=== PATIENT | male | born 1955 | race Caucasian/White ===

== ENCOUNTER 2022-02-26 11:25 | Emergency (ER) | payer OTHER ==
[2022-02-26] MEDS ORDERED: LIDOCAINE 1% W/EPI 1:100,000 10 ML VIAL ONE (11:27)
[2022-02-26] MEDS ORDERED: FENTANYL CITR 100 MCG/2 ML ONE (11:46)
--- NOTE | 2022-02-26 14:03 | ER ---
Nurse's Notes [facility] Name: Cam Christensen Jr Age: 66 yrs Sex: Male : 1955 Arrival Date: 02/26/2022 Time: 11:28 Bed 3 Private MD: Diagnosis: Other mechanical complication of surgically created arteriovenous fistula, initial encounter Presentation: 02/26 11:28 Chief complaint: EMS states: Bleeding dialysis fistula x 1 hr, pt completed dialysis aa5 and dialysis center was unable to control bleeding for 1 hr, approximately 500 cc of blood loss per EMS. Combat tourniquet in place and clamp in place per EMS, bleeding controlled. Pt was given 50 mcg Fentanyl IM by EMS ITALIAN LECTURER. Pt only c/o feeling shaky and left arm pain from tourniquet. 11:28 Coronavirus screen: At this time, the client does not indicate any symptoms associated aa5 with coronavirus-19. Ebola Screen: Patient denies travel to an Ebola-affected area in the 21 days before illness onset. Initial Sepsis Screen: Does the patient meet any 2 criteria? No. Patient's initial sepsis screen is negative. Does the patient have a suspected source of infection? No. Patient's initial sepsis screen is negative. Risk Assessment: Do you want to hurt yourself or someone else? Patient reports no desire to harm self or others. Onset of symptoms was February 26, 2022. 11:28 Acuity: INRU 2 aa5 11:28 Method Of Arrival: EMS: [facility] aa5 Historical: - Allergies: 11:28 No Known Allergies; aa5 - PMHx: 11:28 ESRD; Anemia; Diabetes mellitus; Chronic Ischemic Heart Disease; Secondary aa5 Hyperparathyroidism (renal origin); Jaundice; Protein Calorie Malnutrition; Hepatitis C in 1992, pt states "not anymore"; Screenin:52 Abuse screen: Denies threats or abuse. Nutritional screening: dx of malnutrition. aa5 Tuberculosis screening: No symptoms or risk factors identified. Fall Risk None identified. Assessment: 11:28 General: Appears uncomfortable, Behavior is calm, cooperative. Pain: Complains of pain aa5 in left arm Pain currently is 7 out of 10 on a pain scale. Pain began post tourniquet application by EMS. Neuro: Level of Consciousness is awake, alert, obeys commands, Oriented to person, place, time, situation. Cardiovascular: Heart tones S1 S2 present Rhythm is regular Dialysis shunt: in the dorsal aspect of left forearm, with palpable thrill, with auscultated bruit, bleeding controlled by combat tourniquet and by clamp to bleeding site placed ITALIAN LECTURER by EMS. Respiratory: Airway is patent Respiratory effort is even, unlabored, Respiratory pattern is regular, symmetrical. GI: Abdomen is round. : No signs and/or symptoms were reported regarding the genitourinary system. EENT: No signs and/or symptoms were reported regarding the EENT system. Derm: Skin is dry, Skin is jaundiced, Skin temperature is warm. Musculoskeletal: Range of motion: intact in all extremities. 11:35 Reassessment: PA at bedside placing sutures to left arm fistula to control bleeding, no aa5 bleeding noted after suturing, combat tourniquet removed by PA after suturing was completed. . 11:45 Reassessment: No bleeding noted, pt denies any complaints. Pt sitting up in bed. . aa5 11:50 Reassessment: Pt's called to check on pt, spoke to pt and permission to provide aa5 information to his was obtained, pt's updated about patient and pt's states "he is normally anemic and his hemoglobin was 9.1 recently which is good for him". . 12:00 Neuro: Level of Consciousness is awake, alert, obeys commands, Oriented to person, aa5 place, time, situation. Respiratory: Airway is patent Respiratory effort is even, unlabored, Respiratory pattern is regular, symmetrical. Derm: Skin is dry, No active bleeding noted. Skin is jaundiced, Skin temperature is warm. 13:00 Reassessment: Pt resting in bed, states no complaints at this time. . aa5 13:50 Reassessment: Lab has rejected blood samples several times, recollect needed, pt aa5 declines recollect at this time and requests to go home, PA was notified. . 14:10 Reassessment: No bleeding noted. . Neuro: Level of Consciousness is awake, alert, obeys aa5 commands, Oriented to person, place, time, situation. Respiratory: Airway is patent Respiratory effort is even, unlabored, Respiratory pattern is regular, symmetrical. Derm: Skin is dry, Skin is jaundiced, Skin temperature is warm. Vital Signs: 11:28 BP 131 / 75; Pulse 85; Resp 18 S; Temp 98.0(TE); Pulse Ox 96% ; Weight 102 kg (R); aa5 12:15 BP 112 / 54; Pulse 77; Resp 18 S; Pulse Ox 97% on R/A; aa5 13:00 BP 120 / 63; Pulse 78; Resp 16 S; Pulse Ox 97% on R/A; aa5 13:45 BP 117 / 53; Pulse 84; Resp 18 S; Temp 97.6(TE); Pulse Ox 97% on R/A; aa5 ED Course: 11:28 Patient arrived in ED. eb 11:28 Arm band placed on Patient placed in an exam room, on a stretcher. aa5 11:28 Patient has correct armband on for positive identification. Bed in low position. Call aa5 light in reach. Side rails up X2. Pulse ox on. NIBP on. 11:30 Britt Cleveland RN is Primary Nurse. aa5 11:38 Triage completed. aa5 11:38 Karl Man PA is PHCP. cp 11:38 Gordy Garcia MD is Attending Physician. cp 12:03 Initial lab(s) drawn, by ED staff, sent to lab. Inserted saline lock: 20 gauge in right aa5 antecubital area, using aseptic technique. Blood collected. IV inserted by Erika Barger RN. 14:05 No provider procedures requiring assistance completed. IV discontinued, intact, aa5 bleeding controlled, No redness/swelling at site. Pressure dressing applied. Administered Medications: 12:05 Drug: fentaNYL (PF) 25 mcg Route: IVP; Site: right antecubital; aa5 13:00 Follow up: Response: No adverse reaction; Pain is decreased aa5 Medication: 14:10 VIS not applicable for this client. aa5 Outcome: 14:02 Discharge ordered by . cp 14:10 Discharged to home via wheelchair, with family. aa5 14:10 Condition: stable 14:10 Discharge instructions given to patient, Instructed on discharge instructions, follow up and referral plans. Demonstrated understanding of instructions, follow-up care. 14:19 Patient left the ED. aa5 Signatures: Britt Cleveland RN RN aa5 Karl Man PA PA Kaylynn Thomas
--- NOTE | 2022-02-26 14:03 | EDPHYS ---
Physician Documentation [facility] Name: Cam Christensen Jr Age: 66 yrs Sex: Male : 1955 Arrival Date: 02/26/2022 Time: 11:28 Bed 3 Private MD: ED Physician Gordy Garcia HPI: 02/26 11:45 This 66 yrs old Male presents to ER via EMS with complaints of Bleeding dialysis cp fistula. Historical: - Allergies: 11:28 No Known Allergies; aa5 - PMHx: 11:28 ESRD; Anemia; Diabetes mellitus; Chronic Ischemic Heart Disease; Secondary aa5 Hyperparathyroidism (renal origin); Jaundice; Protein Calorie Malnutrition; Hepatitis C in 1992, pt states "not anymore"; ROS: 11:50 Constitutional: Negative for body aches, chills, fever. cp 11:50 Eyes: Negative for injury, pain, redness, and discharge. cp 11:50 Cardiovascular: Negative for chest pain, palpitations. 11:50 Respiratory: Negative for cough, shortness of breath, wheezing. 11:50 MS/extremity: Positive for of the left arm, bleeding, Negative for injury or acute deformity. 11:50 Neuro: Negative for altered mental status, headache, weakness. 11:50 All other systems are negative. Exam: 11:55 Constitutional: The patient appears in no acute distress, alert, awake, non-toxic, well cp developed, well nourished, uncomfortable. 11:55 Head/Face: Normocephalic, atraumatic. cp 11:55 Eyes: Periorbital structures: appear normal, Conjunctiva: normal, no exudate, no injection, Sclera: no appreciated abnormality, Lids and lashes: appear normal, bilaterally. 11:55 ENT: External ear(s): are unremarkable, Nose: is normal, Mouth: Lips: moist, Oral mucosa: moist, Posterior pharynx: Airway: no evidence of obstruction, patent. 11:55 Chest/axilla: Inspection: normal. 11:55 Cardiovascular: Rate: normal, Rhythm: regular. 11:55 Respiratory: the patient does not display signs of respiratory distress, Respirations: normal, no use of accessory muscles, no retractions, labored breathing, is not present, Breath sounds: are clear throughout, no decreased breath sounds, no stridor, no wheezing. 11:55 Abdomen/GI: Inspection: abdomen appears normal, Palpation: abdomen is soft and non-tender, in all quadrants. 11:55 Musculoskeletal/extremity: Extremities: grossly normal except: noted in the left arm: tourniquet in place left upper arm, no active bleeding observed. Vital Signs: 11:28 BP 131 / 75; Pulse 85; Resp 18 S; Temp 98.0(TE); Pulse Ox 96% ; Weight 102 kg (R); aa5 12:15 BP 112 / 54; Pulse 77; Resp 18 S; Pulse Ox 97% on R/A; aa5 13:00 BP 120 / 63; Pulse 78; Resp 16 S; Pulse Ox 97% on R/A; aa5 13:45 BP 117 / 53; Pulse 84; Resp 18 S; Temp 97.6(TE); Pulse Ox 97% on R/A; aa5 Procedures: 13:00 1 cross stitch placed using 4-0 prolene to left forearm. cp MDM: 11:42 Patient medically screened. cp 14:00 Data reviewed: vital signs, nurses notes. ED course: VSS. Patient refusing third blood cp recollect at this time. 14:00 Counseling: I had a detailed discussion with the patient and/or guardian regarding: the cp historical points, exam findings, and any diagnostic results supporting the discharge/admit diagnosis, the need for outpatient follow up, a family practitioner, to return to the emergency department if symptoms worsen or persist or if there are any questions or concerns that arise at home. 14:00 Response to treatment: the patient's symptoms have resolved after treatment, and as a cp result, I will discharge patient. 02/26 11:39 Order name: IV; Complete Time: 11:57 cp 02/26 12:18 Order name: Labs - recollect needed: recollect all the labs / lilliana printing labels; jl7 Complete Time: 12:49 Administered Medications: 12:05 Drug: fentaNYL (PF) 25 mcg Route: IVP; Site: right antecubital; aa5 13:00 Follow up: Response: No adverse reaction; Pain is decreased aa5 Disposition: 14:53 Co-signature as Attending Physician, Gordy Garcia MD I agree with the assessment and kdr plan of care. Disposition Summary: 02/26/22 14:02 Discharge Ordered Location: Home cp Problem: new cp Symptoms: have improved cp Condition: Stable cp Diagnosis - Other mechanical complication of surgically created arteriovenous fistula, initial cp encounter Followup: cp - With: Private Physician - When: 1 - 2 days - Reason: Recheck today's complaints Forms: - Medication Reconciliation Form cp - Thank You Letter cp - Antibiotic Education cp - Prescription Opioid Use cp Signatures: Dispatcher [employer] EDGordy Maxwell MD MD kdr Calderon, Audri RN RN aa5 Karl Man PA PA cp Leal, Jahala RN RN jl7
[2022-02-26 14:54] VITALS: BP 131/75; TEMP 98; O2SAT 96
== END 2022-02-26 14:19 | disposition home or self-care (01) ==
LOC: ER 11:25
DX: T82.590A Other mechanical complication of surgically created arteriovenous fistula, initial encounter (principal); E11.22 Type 2 diabetes mellitus with diabetic chronic kidney disease; N18.6 End stage renal disease; D64.9 Anemia, unspecified; E21.3 Hyperparathyroidism, unspecified; B19.20 Unspecified viral hepatitis C without hepatic coma; I25.9 Chronic ischemic heart disease, unspecified
CPT/HCPCS: 96374; 99284; J3010

== ENCOUNTER 2024-09-30 09:00 | Inpatient (IN) | payer OTHER ==
[2024-09-30 10:04] LABS: Albumin 2.3 g/dL (3.4-5.0); Albumin/Globulin Ratio 0.6 (1.1-1.8); Anion Gap 8.6 mEq/L (5.0-15.0); Bilirubin Direct 0.5 mg/dL (0-0.2); Bilirubin Total 2.5 mg/dL (0.2-1.0); Globulin 3.9 g/dL (2.3-3.5); Magnesium 1.7 mg/dL (1.6-2.4); Potassium 4.6 mEq/L (3.5-5.1); Protein, Total 6.2 g/dL (6.4-8.2)
--- NOTE | 2024-09-30 10:18 | ER ---
Nurse's Notes [facility] Name: Cam Christensen Jr Age: 69 yrs Sex: Male : 1955 Arrival Date: 09/30/2024 Time: 09:00 Bed 4 Private MD: Diagnosis: Acute combined systolic and diastolic heart failure Presentation: 09/30 09:02 Chief complaint: EMS states: SOB SINCE Y/D. Coronavirus screen: At this time, the bp client does not indicate any symptoms associated with coronavirus-19. Ebola Screen: No symptoms or risks identified at this time. Initial Sepsis Screen: Does the patient meet any 2 criteria? No. Patient's initial sepsis screen is negative. Does the patient have a suspected source of infection? No. Patient's initial sepsis screen is negative. Risk Assessment: Do you want to hurt yourself or someone else? Patient reports no desire to harm self or others. Onset of symptoms is unknown. Care prior to arrival: Glucose check: 136. 09:02 Method Of Arrival: EMS: [facility] bp 09:02 Acuity: NIRU 3 bp 09:02 Note HD 2M. bp Triage Assessment: 09:04 General: Appears in no apparent distress. Behavior is calm, cooperative, appropriate bp for age. Pain: Complains of pain in chest. EENT: No deficits noted. Neuro: No deficits noted. Cardiovascular: Rhythm is sinus rhythm. Respiratory: Breath sounds are clear bilaterally. GI: No signs and/or symptoms were reported involving the gastrointestinal system. : No signs and/or symptoms were reported regarding the genitourinary system. Derm: No signs and/or symptoms reported regarding the dermatologic system. Musculoskeletal: No deficits noted. Historical: - Allergies: 09:04 No Known Allergies; bp - PMHx: 09:04 Anemia; Chronic ischemic heart disease; diabetes mellitus; ESRD; JAUNDICE; Protein bp Calorie Malnutrition; Secondary Hyperparathyroidism (renal origin); HEPATITIS C (Secondary Hyperparathyroidism (renal origin)); - Immunization history:: Adult Immunizations up to date. - Infectious Disease History:: Denies. - Social history:: Smoking status: unknown. Screenin:34 [facility] ED Fall Risk Assessment (Adult) History of falling in the last 3 months, bp including since admission No falls in past 3 months (0 pts) Confusion or Disorientation No (0 pts) Intoxicated or Sedated No (0 pts) Impaired Gait No (0 pts) Mobility Assist Device Used No (0 pt) Altered Elimination No (0 pt) Score/Fall Risk Level 0 - 2 = Low Risk Oriented to surroundings. Abuse screen: Denies threats or abuse. Denies injuries from another. Nutritional screening: No deficits noted. Tuberculosis screening: No symptoms or risk factors identified. Assessment: 09:05 General: Appears in no apparent distress. Behavior is cooperative, appropriate for age, bp anxious. 11:00 Reassessment: No changes from previously documented assessment. bp 13:00 Reassessment: No changes from previously documented assessment. Patient is alert, bp oriented x 3, equal unlabored respirations, skin warm/dry/pink. 17:51 Reassessment: PT JUAN TO DIALYSIS. bp Vital Signs: 09:02 BP 123 / 60; Pulse 70; Resp 18; Temp 98.6; Pulse Ox 100% on 2 lpm NC; Weight 102 kg; bp Height 6 ft. 1 in. ; 11:00 BP 135 / 67; Pulse 91; Resp 20; Pulse Ox 99% ; bp 13:00 BP 141 / 71; Pulse 87; Resp 20; Pulse Ox 100% ; bp 09:02 Body Mass Index 29.67 (102.00 kg, 185.42 cm) bp ED Course: 09:01 Patient arrived in ED. bd 09:02 Madhu Madden, RN is Primary Nurse. bp 09:02 Lashawn Lizarraga MD is Attending Physician. gb1 09:03 Triage completed. bp 09:06 Arm band placed on. bp 09:36 Troponin HS Sent. zm 09:36 PT-INR Sent. zm 09:36 NT PRO-BNP Sent. zm 09:36 Magnesium Sent. zm 09:36 LFT's Sent. zm 09:36 CBC with Diff Sent. zm 09:36 Basic Metabolic Panel Sent. zm 09:36 Inserted saline lock: 20 gauge in right antecubital area, using aseptic technique. zm Blood collected. Flushed with 10 mL NS. 09:42 XRAY Chest (1 view) In Process Unspecified. EDMS 10:16 Rick Fernandes is Hospitalizing Provider. gb1 10:35 Hospitalizing Provider role handed off by Rick Fernandes gb1 10:35 Enedina Sheffield MD is Hospitalizing Provider. gb1 10:59 Inserted saline lock: 24 gauge in right hand, using aseptic technique. Blood collected. bp 13:34 Patient has correct armband on for positive identification. bp 13:34 No provider procedures requiring assistance completed. Patient admitted, IV remains in bp place. Administered Medications: No medications were administered Medication: 13:35 VIS not applicable for this client. bp Outcome: 10:18 Decision to Hospitalize by Provider. gb1 13:35 Admitted to ER Hold. Please see [facility] for further documentation. bp 13:35 Condition: stable 13:35 Instructed on the need for admit, 17:51 Patient left the ED. bp Signatures: Dispatcher [employer] EDMS Christine Jarvis Brian, RN RN Michelle Ram Gina, MD MD gb1 Corrections: (The following items were deleted from the chart) 09:05 09:04 PMHx: Hepatitis C in 1992, pt states "not anymore"; bp bp 13:41 09:02 BP 123 / 60; Pulse 70bpm; Resp 18bpm; Pulse Ox 100% 2 lpm Nasal Cannula; Temp bp 98.6F; bp
--- NOTE | 2024-09-30 10:18 | EDPHYS ---
Physician Documentation [facility] Name: Cam Christensen Jr Age: 69 yrs Sex: Male : 1955 Arrival Date: 09/30/2024 Time: 09:00 Bed 4 Private MD: ED Physician Lashawn Lizarraga HPI: 09/30 10:11 This 69 yrs old Male presents to ER via EMS with complaints of sob. gb1 10:11 69-year-old Mr. Cam Christensen came for shortness of breath. He is at dialysis gb1 patient ESRD who dialyzes Monday and Monday. He did go and have dialysis on Monday. He is a heavy smoker with a history of chronic ischemic heart disease, diabetes, anemia, cirrhosis. Patient denies any chest pain or fever he denies any cough.. Historical: - Allergies: 09:04 No Known Allergies; bp - PMHx: 09:04 Anemia; Chronic ischemic heart disease; diabetes mellitus; ESRD; JAUNDICE; Protein bp Calorie Malnutrition; Secondary Hyperparathyroidism (renal origin); HEPATITIS C (Secondary Hyperparathyroidism (renal origin)); - Immunization history:: Adult Immunizations up to date. - Infectious Disease History:: Denies. - Social history:: Smoking status: unknown. Exam: 10:11 Constitutional: This is a well developed, well nourished patient who is awake, alert, gb1 he appears tired, pale and slightly jaundiced. 10:11 Head/Face: Normocephalic, atraumatic. Eyes: Pupils equal round and reactive to light, gb1 extra-ocular motions intact. Lids and lashes normal. Conjunctiva and sclera are non-icteric and not injected. Cornea within normal limits. Periorbital areas with no swelling, redness, or edema. ENT: Nares patent. No nasal discharge, no septal abnormalities noted. Tympanic membranes are normal and external auditory canals are clear. Oropharynx with no redness, swelling, or masses, exudates, or evidence of obstruction, uvula midline. Mucous membranes moist. Neck: Trachea midline, no thyromegaly or masses palpated, and no cervical lymphadenopathy. Supple, full range of motion without nuchal rigidity, or vertebral point tenderness. No Meningismus. Chest/axilla: Normal chest wall appearance and motion. Nontender with no deformity. No lesions are appreciated. Cardiovascular: Regular rate and rhythm with a normal S1 and S2. No gallops, murmurs, or rubs. Normal PMI, no JVD. No pulse deficits. Respiratory: Clear to auscultation on the left. No rales, rhonchi or wheezes noted. Mild increased work of breathing, mild retractions, no nasal flaring. Abdomen/GI: Soft, non-tender, with normal bowel sounds. No distension or tympany. No guarding or rebound. No evidence of tenderness throughout. Back: No spinal tenderness. No costovertebral tenderness. Full range of motion. Skin: Warm, dry with normal turgor. Normal color with no rashes, no lesions, and no evidence of cellulitis. MS/ Extremity: Pulses equal, no cyanosis. Neurovascular intact. Full, normal range of motion. Vital Signs: 09:02 BP 123 / 60; Pulse 70; Resp 18; Temp 98.6; Pulse Ox 100% on 2 lpm NC; Weight 102 kg; bp Height 6 ft. 1 in. ; 11:00 BP 135 / 67; Pulse 91; Resp 20; Pulse Ox 99% ; bp 13:00 BP 141 / 71; Pulse 87; Resp 20; Pulse Ox 100% ; bp 09:02 Body Mass Index 29.67 (102.00 kg, 185.42 cm) bp MDM: 09:02 Medical Screening Exam initiated gb 10:11 Data reviewed: vital signs, nurses notes. ED course: 69-year-old male with history of gb1 ESRD on hemodialysis Monday and Monday is here with decompensated heart failure and right-sided pulmonary edema with effusion-. Patient is requiring emergent hemodialysis by Dr. Castillo. Will admit to hospitalit. Likely decompensated heart failure. 09/30 09:05 Order name: Basic Metabolic Panel; Complete Time: 10:18 09/30 09:05 Order name: CBC with Diff; Complete Time: 14:20 09/30 09:05 Order name: LFT's; Complete Time: 10:18 09/30 09:05 Order name: Magnesium; Complete Time: 10:18 09/30 09:05 Order name: NT PRO-BNP; Complete Time: 10:18 09/30 09:05 Order name: PT-INR; Complete Time: 12:28 [facility] 09/30 09:05 Order name: Troponin HS; Complete Time: 10:18 [facility] 09/30 11:45 Order name: CBC Smear Scan; Complete Time: 14:20 [facility] 09/30 09:05 Order name: XRAY Chest (1 view); Complete Time: 10:30 [facility] 09/30 11:31 Order name: CONS Physician Consult EDNY 09/30 09:05 Order name: Cardiac monitoring; Complete Time: 09:35 [facility] 09/30 09:05 Order name: EKG - Nurse/Tech; Complete Time: 09:35 [facility] 09/30 09:05 Order name: IV Saline Lock; Complete Time: 09:35 [facility] 09/30 09:05 Order name: Labs collected and sent; Complete Time: 09:35 [facility] 09/30 09:05 Order name: O2 Per Protocol; Complete Time: 09:09 [facility] 09/30 09:05 Order name: O2 Sat Monitoring; Complete Time: 09:09 [facility] 09/30 10:10 Order name: Labs - recollect needed: recollect blue and lavender; Complete Time: 11:00 bd Administered Medications: No medications were administered Disposition Summary: 09/30/24 10:18 Hospitalization Ordered Notes: Hospitalization Status: Inpatient Admission gb1 Condition: Fair gb1 Problem: new gb1 Symptoms: have worsened gb1 Bed/Room Type: Standard gb1 Provider: Enedina Sheffield(09/30/24 10:37) gb1 Location: Telemetry/MedSurg (Inpatient)(09/30/24 17:38) kb3 Room Assignment: [facility](09/30/24 17:38) kb3 Diagnosis - Acute combined systolic and diastolic heart failure gb1 Forms: - Medication Reconciliation Form gb1 - SBAR form gb1 - Leadership Thank You Letter gb1 Signatures: Dispatcher [employer] EDMS Christine Jarvis Josh, PA PA [id number] Madhu Madden RN RN bp Vania Burt, RN RN kb3 Lashawn Lizarraga MD MD gb1 Corrections: (The following items were deleted from the chart) 09:05 09:04 PMHx: Hepatitis C in 1992, pt states "not anymore"; bp bp 09:06 09:06 BASIC METABOLIC PANEL+C.LAB.BRZ ordered. EDMS EDMS 09:06 09:06 CBC+H.LAB.BRZ ordered. EDMS EDMS 09:06 09:06 HEPATIC FUNCTION+C.LAB.BRZ ordered. EDMS EDMS 09:06 09:06 MAGNESIUM+C.LAB.BRZ ordered. EDMS EDMS 09:06 09:06 PROBNP+C.LAB.BRZ ordered. EDMS EDMS 09:06 09:06 PROTIME (+INR)+COAG.LAB.BRZ ordered. EDMS EDMS 09:06 09:06 Troponin High Sensitivity+C.LAB.BRZ ordered. EDMS EDMS 09:06 09:06 Chest Single View+RAD.RAD.BRZ ordered. EDMS EDMS 10:37 10:18 Rick Fernandes gb1 gb1 12:13 10:18 Telemetry/MedSurg (Inpatient) gb1 kb3 12:13 10:18 gb1 kb3 17:38 12:13 BR ER HOLD kb3 kb3 17:38 12:13 ERHOLD- kb3 kb3
--- NOTE | 2024-09-30 10:29 | RAD REPORT ---
EXAMINATION: ONE VIEW CHEST XR CLINICAL INDICATION: Male, 69 years old.,CHEST PAIN TECHNIQUE: Frontal chest projection is submitted. Examination is limited by patient positioning and t echnique. COMPARISON: No prior exam. FINDINGS: The lungs are somewhat suboptimally inflated. Noninclusion of the tip of the right costophrenic angle limits evaluation. Central interstitial prominence and perihilar and basilar hazy opacities. Right moderate pleural effusion with component accumulating near the right apex. The heart is normal in size. Mediastinal contours are unremarkable. IMPRESSION: Findings that may suggest pulmonary edema. Concomitant or superimposed pneumonia should be considered . Moderate right pleural effusion.
[2024-09-30 11:39] LABS: Absolute Eosinophils 0.1 K/uL (0-0.5); Absolute Lymphocytes (CBC) 0.7 K/uL (0.7-4.9); Absolute Monocytes 0.4 K/uL (0.1-1.3); Absolute Neutrophil 2.1 K/uL (1.8-8.0); Basophils % 1.2 % (0-1.3); Eosinophils % 3.1 % (0-4.4); Hematocrit 29.2 % (39.6-49.0); Hemoglobin 10.2 g/dL (13.6-17.9); Lymphocytes % 19.9 % (15.3-44.8); MCH 34.3 pg (27.0-35.0); MCHC 34.9 g/dL (32.0-36.0); MCV 98.4 fL (80-100); MPV 7.5 fL (7.6-11.3); Monocytes % 11.4 % (3.3-12.3); Neutrophils % 64.4 % (41.7-73.7); Nucleated Red Blood Cells % 0.4 % (0-0); Platelets 32 thou/uL (152-406); RBC Red Blood Cell Count 2.96 M/uL (4.33-5.43); Red Cell Distribution Width 16.4 % (12.1-15.2)
[2024-09-30 11:59] LABS: PT Prothrombin Time 14.6 SECONDS (10-13.0); Protime INR 1.3
--- NOTE | 2024-09-30 12:31 | P.HP ---
Certification for Inpatient Patient admitted to: Inpatient With expected LOS: >2 Midnights Patient will require the following post-hospital care: None Practitioner: I am a practitioner with admitting privileges, knowledge of patient current condition, hospital course, and medical plan of care. Services: Services provided to patient in accordance with Admission requirements found in Title 42 Section 412.3 of the Code of Federal Regulations <Naresh Mitchell - Last Filed: 09/30/24 12:25> Patient History Date of Service: 09/30/24 Reason for admission: ESRD, CHF History of Present Illness: This is a 69-year-old male patient who presents to the emergency room via EMS for increased shortness of breath over the past 24 hours. Patient stated that he has a history of end-stage renal disease and is on hemodialysis along with chronic liver disease and cardiovascular disease. Normally he has a Monday, , Monday dialysis patient. Dialyzed this past Monday without complication but still had increased edema per patient. Patient stated that over the last couple days had marked swelling with increased shortness of breath despite dialysis. EMS called today because of the shortness of breath. Patient was evaluated in the emergency room and found to have a sodium of 142, potassium of 4.6, chloride of 111, bicarb 27, BUN of 29, creatinine of 2.92, glucose of 107. Patient's BNP was 28,673. Patient has a white blood cell count of 3.3, hemoglobin of 10.2, hematocrit 29.2, platelet 32. Chest x-ray shows pulmonary edema with pleural effusion and possible underlying pneumonia. No fevers present and no increase in white cell count. Patient on 2 L nasal cannula emergency room with 100% oxygen saturation at this time. Normally sees the [facility] for primary care. Emergency room consulted Dr. Alvarez with nephrology team who wanted him hemodialyzed urgently today. Home medications list reviewed: No (Unable to obtain all medications) - Social History Smoking Status: Never smoker Smoking therapy provided: No Alcohol use: No CD- Drugs: No Place of Residence: Home <Naresh Mitchell - Last Filed: 09/30/24 12:25> Date of Service: 09/30/24 <Enedina Sheffield - Last Filed: 09/30/24 16:46> Review of Systems General: As per HPI Eyes: Unremarkable ENT: Unremarkable Respiratory: Shortness of Breath Cardiovascular: Edema Gastrointestinal: Unremarkable Musculoskeletal: Unremarkable Integumentary: Unremarkable Neurological: Unremarkable Lymphatics: Unremarkable <Naresh Mitchell - Last Filed: 09/30/24 12:25> Physical Examination - Vital Signs Temperature: 98.6 F Blood Pressure: 123/60 Pulse: 70 Respirations: 18 Pulse Ox (%): 100 (2 L nasal cannula) - Physical Exam General: Alert, Oriented x3, Cooperative HEENT: Normocephalic, PERRLA Neck: Supple, JVD not distended Respiratory: Crackles/rales Cardiovascular: Regular rate/rhythm, Normal S1 S2, No gallops, No rubs, No murmurs, Edema (2+ bilateral lower extremities and upper extremities) Capillary refill: <2 Seconds Gastrointestinal: Normal bowel sounds, Soft and benign, Non-distended Musculoskeletal: No clubbing, No swelling, No contractures, No erythema, No tenderness, No warmth Integumentary: Other (Sporadic bruising to the upper and lower extremities along with the chest and abdomen) Neurological: Normal speech, Normal strength at 5/5 x4 extr, Normal tone, Sensation intact - Studies Laboratory Data (last 24 hrs) 09/30/24 09/30/24 09/30/24 11:03 11:03 09:33 WBC 3.30 L Hgb 10.2 L Hct 29.2 L Plt Count 32 L PT 14.6 H INR 1.30 Sodium 142 Potassium 4.6 BUN 29 H Creatinine 2.92 H Glucose 107 H Magnesium 1.7 Total Bilirubin 2.5 H AST 19 ALT 16 Alkaline Phosphatase 88 <Naresh Mitchell - Last Filed: 09/30/24 12:25> - Studies Laboratory Data (last 24 hrs) 09/30/24 09/30/24 09/30/24 11:03 11:03 09:33 WBC 3.30 L Hgb 10.2 L Hct 29.2 L Plt Count 32 L PT 14.6 H INR 1.30 Sodium 142 Potassium 4.6 BUN 29 H Creatinine 2.92 H Glucose 107 H Magnesium 1.7 Total Bilirubin 2.5 H AST 19 ALT 16 Alkaline Phosphatase 88 <Enedina Sheffield - Last Filed: 09/30/24 16:46> Assessment and Plan - Problems (Diagnosis) (1) Chronic liver disease Current Visit: No Status: Chronic (2) CHF (congestive heart failure) Current Visit: Yes Status: Acute Qualifiers: Heart failure type: unspecified Heart failure chronicity: acute Qualified Code(s): I50.9 - Heart failure, unspecified (3) ESRD (end stage renal disease) on dialysis Current Visit: Yes Status: Chronic - Plan 1. Chronic liver disease Will continue to monitor liver function, patient was treated for hepatitis C successfully but has residual damage 2. ESRD with dialysis Patient needs urgent hemodialysis secondary to fluid overload. Dr. Alvarez has been consulted and will manage kidney function and dialysis treatments 3. Congestive heart failure Presumed new onset congestive heart failure based on patient's history and examination. Echocardiogram will be ordered to further assess whether this is cardiac in nature versus renal in nature. Patient will have hemodialysis to help with fluid overload status and will maintain on oxygen therapy. 4. DVT prophylaxis Patient will be given heparin twice daily 5000 units for DVT prophylaxis We will continue to monitor patient in telemetry unit and will get every morning labs including CBC, BMP, BNP Discharge Plan: Home Plan to discharge in: Greater than 2 days - Advance Directives Does patient have a Living Will: No Does patient have a Durable POA for Healthcare: No - Code Status/Comfort Care Code Status Assessed: Yes Code Status: Full Code Critical Care: No Time Spent Managing Pts Care (In Minutes): 45 <Naresh Mitchell - Last Filed: 09/30/24 12:25> Physician Review: Patient Assessed, Agree with Above Assessment and Plan <Enedina Sheffield - Last Filed: 09/30/24 16:46>
[2024-09-30] MEDS ORDERED: ACETAMINOPHEN 500 MG TAB PO PRN (13:16)
[2024-09-30] MEDS ORDERED: ONDANSETRON 4 MG/2 ML VIAL IV PRN (13:16)
[2024-09-30 13:54] VITALS: BMI 29.6
[2024-09-30 14:11] LABS: Blood Morphology Comment NOTED (NOT SEEN); Platelet Estimate DECR; White Blood Cell Scan OK (OK)
[2024-09-30 14:12] LABS: Spherocyte 1+; Teardrop Cell FEW
[2024-09-30] MEDS: HEPARIN 5000 UNIT/ML 1 ML VIAL SQ SCH (21:44)
--- NOTE | 2024-09-30 22:04 | P.CNS ---
Date of Consult: 09/30/24 Reason for Consult: ESRD Requesting Physician: Enedina Sheffield Chief Complaint: ESRD, CHF History of Present Illness: This is a 69-year-old male patient who presents to the emergency room via EMS for increased shortness of breath over the past 24 hours. Patient stated that he has a history of end-stage renal disease and is on hemodialysis along with chronic liver disease and cardiovascular disease. Normally he has a Monday, , Monday dialysis patient. Dialyzed this past Monday without complication but still had increased edema per patient. Patient stated that over the last couple days had marked swelling with increased shortness of breath despite dialysis. EMS called today because of the shortness of breath. Patient was evaluated in the emergency room and found to have a sodium of 142, potassium of 4.6, chloride of 111, bicarb 27, BUN of 29, creatinine of 2.92, glucose of 107. Patient's BNP was 28,673. Patient has a white blood cell count of 3.3, hemoglobin of 10.2, hematocrit 29.2, platelet 32. Chest x-ray shows pulmonary edema with pleural effusion and possible underlying pneumonia. No fevers present and no increase in white cell count. Patient on 2 L nasal cannula emergency room with 100% oxygen saturation at this time. [facility] Emergency room consulted Dr. Alvarez with nephrology team who wanted him hemodialyzed urgently today. [id number] 10:11 This 69 yrs old Male presents to ER via EMS with complaints of sob. [id number] 10:11 69-year-old Mr. Cam Christensen came for shortness of breath. He is at dialysis gb1 patient ESRD who dialyzes Monday and Monday. He did go and have dialysis on Monday. He is a heavy smoker with a history of chronic ischemic heart disease, diabetes, anemia, cirrhosis. Patient denies any chest pain or fever he denies any cough.. Allergies No Known Allergies Allergy (Verified 09/30/24 21:52) Home medications list reviewed: Yes - Past Medical/Surgical History Diabetic: Yes -: ESRD (Dr. Alvarez/ [facility]) -: DM II -: CHF -: HTN -: HCV - Social History Smoking Status: Unknown if ever smoked Alcohol use: No CD- Drugs: No Place of Residence: Home Review of Systems 10-point ROS is otherwise unremarkable General: Weakness, Malaise Respiratory: SOB with Excertion Physical Examination Temp Pulse Resp BP Pulse Ox 98.6 F 80 20 131/67 100 09/30/24 12:40 09/30/24 16:00 09/30/24 16:00 09/30/24 16:00 09/30/24 16:00 General: Oriented x3, Cooperative HEENT: Atraumatic Neck: Supple Respiratory: Diminished Cardiovascular: Regular rate/rhythm, Edema Gastrointestinal: Soft and benign, Non-distended Musculoskeletal: No clubbing, No contractures Integumentary: No rashes, No cyanosis Neurological: Normal speech Laboratory Data (last 24 hrs) 09/30/24 09/30/24 09/30/24 11:03 11:03 09:33 WBC 3.30 L Hgb 10.2 L Hct 29.2 L Plt Count 32 L PT 14.6 H INR 1.30 Sodium 142 Potassium 4.6 BUN 29 H Creatinine 2.92 H Glucose 107 H Magnesium 1.7 Total Bilirubin 2.5 H AST 19 ALT 16 Alkaline Phosphatase 88 Imagings Data: EXAMINATION: ONE VIEW CHEST XR CLINICAL INDICATION: Male, 69 years old.,CHEST PAIN TECHNIQUE: Frontal chest projection is submitted. Examination is limited by patient positioning and technique. COMPARISON: No prior exam. FINDINGS: The lungs are somewhat suboptimally inflated. Noninclusion of the tip of the ri ght costophrenic angle limits evaluation. Central interstitial prominence and perihilar and basilar hazy opacities. Right moderate pleural effusion with component accumulating near the right apex. The heart is normal in size. Mediastinal contours are unremarkable. IMPRESSION: Findings that may suggest pulmonary edema. Concomitant or superimposed pneumonia should be considered. Moderate right pleural effusion. Conclusions/Impression: ESRD -Acute HD as ordered -HD TIW HTN with CKD/ CHF -Hold antihypertensives at this time Diastolic CHF, A/C Right Pleural Effusion -Acute HD with UF DM II with CKD & Polyneuropathy -RISS prn Hypoalbuminemia -Start Nepro Pancytopenia Anemia in CKD -Monitor CBC -Retacrit prn CKD MBD Secondary HyperParathyroidism -Start calcitriol -Start Renvela Case reviewed with Dr. Lashawn Lizarraga Hospitalist and ER notes reviewed Thank you kindly for the consultation
[2024-09-30] MEDS ORDERED: NA CHLORIDE 0.9% 1,000 ML IV PRN (22:14)
[2024-09-30] MEDS ORDERED: MANNITOL 25% 12.5 GM/50 ML VIAL IV PRN (22:14)
[2024-09-30] MEDS ORDERED: ALBUMIN HUMAN 25% 50 ML IV SCH (23:00)
[2024-10-01 04:47] LABS: Absolute Eosinophils 0.1 K/uL (0-0.5); Absolute Lymphocytes (CBC) 0.6 K/uL (0.7-4.9); Absolute Monocytes 0.4 K/uL (0.1-1.3); Absolute Neutrophil 2.2 K/uL (1.8-8.0); Eosinophils % 3.4 % (0-4.4); Hematocrit 27.6 % (39.6-49.0); Hemoglobin 9.6 g/dL (13.6-17.9); Lymphocytes % 18.2 % (15.3-44.8); MCH 33.9 pg (27.0-35.0); MCHC 34.8 g/dL (32.0-36.0); MCV 97.4 fL (80-100); MPV 7.5 fL (7.6-11.3); Monocytes % 10.6 % (3.3-12.3); Neutrophils % 66.8 % (41.7-73.7); Nucleated Red Blood Cells % 0.1 % (0-0); RBC Red Blood Cell Count 2.83 M/uL (4.33-5.43); Red Cell Distribution Width 16.3 % (12.1-15.2)
[2024-10-01 04:49] LABS: Platelets 29 thou/uL (152-406)
[2024-10-01 04:52] VITALS: TEMP 97.7
[2024-10-01 05:11] LABS: AST/SGOT 14 U/L (15-37); Albumin 2.2 g/dL (3.4-5.0); Albumin/Globulin Ratio 0.6 (1.1-1.8); Alkaline Phosphatase 82 U/L (45-117); Anion Gap 4.7 mEq/L (5.0-15.0); BUN Blood Urea Nitrogen 21 mg/dL (7-18); Bicarbonate 33 mEq/L (21-32); Bilirubin Total 2.4 mg/dL (0.2-1.0); Globulin 3.5 g/dL (2.3-3.5); Glomerular Filtration Rate 28 ml/min (=/>90); Glucose Level 106 mg/dL (74-106); Potassium 4.7 mEq/L (3.5-5.1); Protein, Total 5.7 g/dL (6.4-8.2); Sodium Level 142 mEq/L (136-145)
[2024-10-01 05:20] LABS: ALT/SGPT < 14 U/L (16-61)
[2024-10-01 05:37] LABS: Hepatitis B Surface Ab - Quant 26.37 mIU/mL (<8.0); Hepatitis B surface AG Interp. Nonreactive (Nonreactive)
[2024-10-01 05:38] LABS: HBsAG Nonreactive Report Report
[2024-10-01] MEDS: NEPRO SHAKE 237 ML CAN PO SCH (09:00)
[2024-10-01 09:35] VITALS: BP 126/64
[2024-10-01 09:40] VITALS: O2SAT 98
[2024-10-01] MEDS: SEVELAMER CARBONATE 800 MG TABLET PO SCH (09:47)
[2024-10-01] MEDS: CALCITROL 0.25 MCG CAP PO SCH (09:47)
[2024-10-01] MEDS: MULTIVITAMINS,THERAPEUT 1 TAB PO SCH (09:48)
[2024-10-01] MEDS: EPOETIN ALFA 10,000 UNIT/ML VIAL SQ SCH (10:02)
[2024-10-01] MEDS: EPOETIN ALFA 10,000 UNIT/ML VIAL IV SCH (11:32)
--- NOTE | 2024-10-01 13:19 | P.PN ---
Date of Service: 10/01/24 Subjective: Seen resting in bed. Feels better today. Denies fevers, chills, shortness of breath, chest pain. He is to undergo 1 more round of dialysis today. He states he would like to go home after dialysis. Review of Systems General: As per HPI Eyes: Unremarkable ENT: Unremarkable Respiratory: Shortness of Breath Cardiovascular: Edema Gastrointestinal: Unremarkable Musculoskeletal: Unremarkable Integumentary: Unremarkable Neurological: Unremarkable Lymphatics: Unremarkable Physical Examination - Vital Signs Temperature: 98.6 F Blood Pressure: 123/60 Pulse: 70 Respirations: 18 Pulse Ox (%): 100 (2 L nasal cannula) - Physical Exam General: Alert, Oriented x3, Cooperative HEENT: Normocephalic, PERRLA Neck: Supple, JVD not distended Respiratory: Crackles/rales Cardiovascular: Regular rate/rhythm, Normal S1 S2, No gallops, No rubs, No murmurs, Edema (2+ bilateral lower extremities and upper extremities) Capillary refill: <2 Seconds Gastrointestinal: Normal bowel sounds, Soft and benign, Non-distended Musculoskeletal: No clubbing, No swelling, No contractures, No erythema, No tenderness, No warmth Integumentary: Other (Sporadic bruising to the upper and lower extremities along with the chest and abdomen) Neurological: Normal speech, Normal strength at 5/5 x4 extr, Normal tone, Sensation intact - Studies Laboratory Data (last 24 hrs) 09/30/24 09/30/24 09/30/24 11:03 11:03 09:33 WBC 3.30 L Hgb 10.2 L Hct 29.2 L Plt Count 32 L PT 14.6 H INR 1.30 Sodium 142 Potassium 4.6 BUN 29 H Creatinine 2.92 H Glucose 107 H Magnesium 1.7 Total Bilirubin 2.5 H AST 19 ALT 16 Alkaline Phosphatase 88 - Studies Laboratory Data (last 24 hrs) 09/30/24 09/30/24 09/30/24 11:03 11:03 09:33 WBC 3.30 L Hgb 10.2 L Hct 29.2 L Plt Count 32 L PT 14.6 H INR 1.30 Sodium 142 Potassium 4.6 BUN 29 H Creatinine 2.92 H Glucose 107 H Magnesium 1.7 Total Bilirubin 2.5 H AST 19 ALT 16 Alkaline Phosphatase 88 Assessment and Plan - Problems (Diagnosis) (1) Chronic liver disease Current Visit: No Status: Chronic (2) CHF (congestive heart failure) Current Visit: Yes Status: Acute Qualifiers: Heart failure type: unspecified Heart failure chronicity: acute Qualified Code(s): I50.9 - Heart failure, unspecified (3) ESRD (end stage renal disease) on dialysis Current Visit: Yes Status: Chronic - Plan 1. Chronic liver disease Will continue to monitor liver function, patient was treated for hepatitis C successfully but has residual damage 2. ESRD with dialysis HD per nephrology. HD again this morning 3. Congestive heart failure Presumed new onset congestive heart failure based on patient's history and examination. Echocardiogram pending 4. DVT prophylaxis With heparin subq daily We will continue to monitor patient in telemetry unit and will get every morning labs including CBC, BMP, BNP Discharge Plan: Home Plan to discharge in: Home after dialysis - Advance Directives Does patient have a Living Will: No Does patient have a Durable POA for Healthcare: No - Code Status/Comfort Care Code Status Assessed: Yes Code Status: Full Code Critical Care: No Time Spent Managing Pts Care (In Minutes): 35
--- NOTE | 2024-10-01 14:43 | P.DS ---
Admission Date: 09/30/24 Discharge Date: 10/01/24 Discharge Condition: GOOD Reason for Admission: ESRD, CHF Hospital Course: This is a 69-year-old male patient who presents to the emergency room via EMS for increased shortness of breath over the past 24 hours. Patient stated that he has a history of end-stage renal disease and is on hemodialysis along with chronic liver disease and cardiovascular disease. Normally he has a Monday, , Monday dialysis patient. Dialyzed this past Monday without complication but still had increased edema per patient. Patient stated that over the last couple days had marked swelling with increased shortness of breath despite dialysis. EMS called today because of the shortness of breath. Patient was evaluated in the emergency room and found to have a sodium of 142, potassium of 4.6, chloride of 111, bicarb 27, BUN of 29, creatinine of 2.92, glucose of 107. Patient's BNP was 28,673. Patient has a white blood cell count of 3.3, hemoglobin of 10.2, hematocrit 29.2, platelet 32. Chest x-ray shows pulmonary edema with pleural effusion and possible underlying pneumonia. No fevers present and no increase in white cell count. Patient on 2 L nasal cannula emergency room with 100% oxygen saturation at this time. [facility] Emergency room consulted Dr. Alvarez with nephrology. He was taken for emergent dialysis the same day. His breathing improved. He underwent hemodialysis the following day. His hypoxia is resolved now. 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 The remainder of his medical problems are chronic and stable. He is medically optimized for discharge Vital Signs/Physical Exam: Temp Pulse Resp BP Pulse Ox 97.7 F 72 20 126/64 98 10/01/24 08:00 10/01/24 08:00 10/01/24 08:00 10/01/24 08:00 10/01/24 08:00 General: In no apparent distress HEENT: Atraumatic, Normocephalic Neck: 2+ carotid pulse no bruit Respiratory: Clear to auscultation bilaterally, Normal air movement Cardiovascular: Normal pulses Capillary refill: <2 Seconds Gastrointestinal: Normal bowel sounds, Soft and benign Musculoskeletal: No clubbing Integumentary: No rashes Neurological: Normal speech Lymphatics: No axilla or inguinal lymphadenopathy Laboratory Data at Discharge: WBC 3.30 thou/uL (4.3-10.9) L 10/01/24 04:03 Hgb 9.6 g/dL (13.6-17.9) L 10/01/24 04:03 Hct 27.6 % (39.6-49.0) L 10/01/24 04:03 Plt Count 29 thou/uL (152-406) L 10/01/24 04:03 PT 14.6 SECONDS (10-13.0) H 09/30/24 11:03 INR 1.30 09/30/24 11:03 APTT 38.4 SECONDS (27.2-37.4) H 10/01/24 04:03 Sodium 142 mEq/L (136-145) 10/01/24 04:03 Potassium 4.7 mEq/L (3.5-5.1) 10/01/24 04:03 BUN 21 mg/dL (7-18) H 10/01/24 04:03 Creatinine 2.47 mg/dL (0.70-1.30) H 10/01/24 04:03 Glucose 106 mg/dL (74-106) 10/01/24 04:03 Magnesium 1.7 mg/dL (1.6-2.4) 09/30/24 09:33 Total Bilirubin 2.4 mg/dL (0.2-1.0) H 10/01/24 04:03 AST 14 U/L (15-37) L 10/01/24 04:03 ALT < 14 U/L (16-61) L 10/01/24 04:03 Alkaline Phosphatase 82 U/L (45-117) 10/01/24 04:03 Followup: Jai Alvarez DO [Primary Care Provider] -
--- NOTE | 2024-10-01 21:09 | P.PN ---
Date of Service: 10/01/24 Vital Signs Temp Pulse Resp BP Pulse Ox 97.7 F 72 20 126/64 98 10/01/24 08:00 10/01/24 08:00 10/01/24 08:00 10/01/24 08:00 10/01/24 08:00 Assessment/ Plan: Nephrology Improving dyspnea No chest pain No acute events overnight Vitals, medications, blood work and imaging reviewed in the chart General: Oriented x3, Cooperative HEENT: Atraumatic Neck: Supple Respiratory: Diminished Cardiovascular: Regular rate/rhythm, Edema Gastrointestinal: Soft and benign, Non-distended Musculoskeletal: No clubbing, No contractures Integumentary: No rashes, No cyanosis Neurological: Normal speech Laboratory Data (last 24 hrs) 09/30/24 09/30/24 09/30/24 11:03 11:03 09:33 WBC 3.30 L Hgb 10.2 L Hct 29.2 L Plt Count 32 L PT 14.6 H INR 1.30 Sodium 142 Potassium 4.6 BUN 29 H Creatinine 2.92 H Glucose 107 H Magnesium 1.7 Total Bilirubin 2.5 H AST 19 ALT 16 Alkaline Phosphatase 88 Imagings Data: EXAMINATION: ONE VIEW CHEST XR CLINICAL INDICATION: Male, 69 years old.,CHEST PAIN TECHNIQUE: Frontal chest projection is submitted. Examination is limited by patient positioning and technique. COMPARISON: No prior exam. FINDINGS: The lungs are somewhat suboptimally inflated. Noninclusion of the tip of the right costophrenic angle limits evaluation. Central interstitial prominence and perihilar and basilar hazy opacities. Right moderate pleural effusion with component accumulating near the right apex. The heart is normal in size. Mediastinal contours are unremarkable. IMPRESSION: Findings that may suggest pulmonary edema. Concomitant or superimposed pneumonia should be considered. Moderate right pleural effusion. Conclusions/Impression: ESRD -Acute HD as ordered -HD TIW HTN with CKD/ CHF -Hold antihypertensives at this time Diastolic CHF, A/C Right Pleural Effusion -Acute HD with UF DM II with CKD & Polyneuropathy -RISS prn Hypoalbuminemia -Continue Nepro Pancytopenia Anemia in CKD -Monitor CBC -Retacrit prn CKD MBD Secondary HyperParathyroidism -Continue calcitriol -Continue Renvela Case reviewed with Dr. Sheffield Hospitalist note reviewed
--- NOTE | 2024-10-08 12:53 | EKG ---
Test Date: 2024-09-30 Test Time: 09:17:12 Pantograph Machine Set Up Operator: ROBERTA MEASUREMENT RESULTS: Intervals: Rate: 78 WA: 188 QRSD: 96 QT: 392 QTc: 446 [place]: P: 55 WA: 188 QRS: 44 T: 202 INTERPRETIVE STATEMENTS: Normal sinus rhythm with sinus arrhythmia ST & T wave abnormality, consider inferior ischemia ST & T wave abnormality, consider anterolateral ischemia Abnormal ECG No previous ECG available for comparison Electronically Signed On 10-08-24 12:34:55 CDT by Tino Pradhan
== END 2024-10-01 17:24 | disposition home health service (06) | DRG 291 ==
LOC: ER 09:00 → ERHOLD 11:27 → 2ND 18:06
PROVIDERS: ADMIT Family Medicine; ATTEND Family Medicine
PROC: 5A1D70Z Performance of Urinary Filtration, Intermittent, Less than 6 Hours Per Day (ICD-10-PCS; principal; 2024-09-30)
DX: I13.2 Hypertensive heart and chronic kidney disease with heart failure and with stage 5 chronic kidney disease, or end stage renal disease (principal); I50.33 Acute on chronic diastolic (congestive) heart failure; N18.6 End stage renal disease; D61.818 Other pancytopenia; N25.81 Secondary hyperparathyroidism of renal origin; E11.22 Type 2 diabetes mellitus with diabetic chronic kidney disease; E11.42 Type 2 diabetes mellitus with diabetic polyneuropathy; D63.1 Anemia in chronic kidney disease; K76.9 Liver disease, unspecified; E88.09 Other disorders of plasma-protein metabolism, not elsewhere classified; F17.200 Nicotine dependence, unspecified, uncomplicated; Z99.2 Dependence on renal dialysis
CPT/HCPCS: 36415; 71045; 80048; 80053; 80076; 83735; 83880; 84484; 85025; 85610; 85730; 86706; 87340; 90935; 93005; 94760; 99285; J1644; Q4081